=== PATIENT | male | born 1990 | race Two or more races ===

== ENCOUNTER 2019-05-18 01:27 | Emergency (ER) | payer SELFPAY ==
[~2019-05-18] VITALS: Ht 175.3 cm; Wt 65.8 kg
[2019-05-18 01:41] VITALS: BP 154/98
== END 2019-05-18 02:29 | disposition left against medical advice (07) ==
LOC: ER 01:31
DX: Z02.89 Encounter for other administrative examinations (principal); Z53.21 Procedure and treatment not carried out due to patient leaving prior to being seen by health care provider